=== PATIENT | male | born 2000 | race Caucasian/White ===

== ENCOUNTER 2020-09-23 09:13 | Emergency (ER) | payer SELFPAY ==
[~2020-09-23] VITALS: Ht 177.8 cm; Wt 77.1 kg
[2020-09-23 09:13] VITALS: BP 105/58
--- NOTE | 2020-09-23 09:13 | NUR ---
Patient BIBA ALS, transferred to bed 11. RN evaluating the patient at bedside.
[2020-09-23] MEDS ORDERED: OLANZapine 10 MG VIAL IM ONE ×2 (09:16→09:30)
--- NOTE | 2020-09-23 09:20 | NUR ---
Patient ambulated to restroom, unable to give urine specimen; gave pt urinal.
--- NOTE | 2020-09-23 09:21 | NUR ---
GERTRUDE FOUND AT A [employer], STATES HE SNORTED X2 OXY PILLS. PT ARRIVED IN 4 POINT RESTRAINTS, PT VERY IRRATIC AND YELLING HX DENIES
--- NOTE | 2020-09-23 09:40 | NUR ---
Patient fell asleep; respirations even and unlabored.
--- NOTE | 2020-09-23 10:40 | NUR ---
Patient resting in bed, respirtations even and unlabored; VS within normal limits.
[2020-09-23 11:24] LABS: BARBITURATE, URINE NEGATIVE ng/ml (NEG <=200); BENZODIAZEPINE, URINE NEGATIVE ng/mL (NEG <=200); CANNABINOID, URINE NEGATIVE ng/mL (NEG <=50); COCAINE, URINE NEGATIVE ng/mL (NEG <=300); OPIATE, URINE NEGATIVE ng/mL (NEG <=2000); PHENCYCLIDINE SCREEN,URINE NEGATIVE ng/mL (NEG <=25)
[2020-09-23 11:45] VITALS: BP 108/58
--- NOTE | 2020-09-23 11:45 | NUR ---
Patient discharged with v/s stable. Written and verbal after care instructions given and explained. Patient verbalized understanding. Ambulatory with steady gait. All questions addressed prior to discharge. Advised to follow up with PMD.
== END 2020-09-23 11:45 | disposition home or self-care (01) ==
LOC: MED 09:13
DX: F19.10 Other psychoactive substance abuse, uncomplicated (principal); R45.1 Restlessness and agitation; R41.82 Altered mental status, unspecified
CPT/HCPCS: 80305; 96372; 99284; J3490; 99283